=== PATIENT | male | born 1965 | race Caucasian/White ===

== ENCOUNTER 2020-02-16 16:00 | Emergency (ER) | payer BC, OTHER ==
[2020-02-16] MEDS ORDERED: fentaNYL 100 MCG/2 ML SDV IVPUSH ONE (16:47)
[2020-02-16] MEDS ORDERED: Ketamine 500 MG/5 ML MDV IV ONE (16:47)
--- NOTE | 2020-02-16 16:51 | EDM.PDOC ---
ED HPI GENERAL MEDICAL PROBLEM - General Chief Complaint: Back Pain or Injury Stated Complaint: [facility] Time Seen by Provider: 02/16/20 16:42 Source of Information: Reports: Patient, Family, RN Notes Reviewed History Limitations: Reports: No Limitations - History of Present Illness INITIAL COMMENTS - FREE TEXT/NARRATIVE: 54-year-old gentleman presents emergency department today with complaint of pain to his right rib mid axillary line area, he had slipped on the ice landed direct contact on some rocks, is experiencing excruciating pain difficult to take a deep breath did arrive by EMS he is also complaining of left knee pain - Related Data Allergies Allergy/AdvReac Type Severity Reaction Status Date / Time pantoprazole [From Protonix] Allergy Rash Verified 02/16/20 16:07 sulfur dioxide Allergy Cannot Verified 02/16/20 16:07 Remember Home Meds: Home Meds Adalimumab [Humira Pen] 1 injection IM ASDIRECTED 02/16/20 [History] Folic Acid 1 mg PO DAILY 02/16/20 [History] Omeprazole 20 mg PO ASDIRECTED 02/16/20 [History] metHOTREXate sodium [Methotrexate] 2.5 mg PO ASDIRECTED 02/16/20 [History] traMADol [Ultram] 50 mg PO DAILY 02/16/20 [History] Past Medical History Musculoskeletal History: Reports: Arthritis, Osteoarthritis - Infectious Disease History Infectious Disease History: Reports: Chicken Pox - Past Surgical History Musculoskeletal Surgical History: Reports: Knee Replacement Social & Family History - Tobacco Use Tobacco Use Status *Q: Never Tobacco User - Caffeine Use Caffeine Use: Reports: Coffee, Soda - Recreational Drug Use Recreational Drug Use: No ED ROS GENERAL - Review of Systems Review Of Systems: See Below Constitutional: Reports: No Symptoms HEENT: Reports: No Symptoms Respiratory: Reports: Shortness of Breath Cardiovascular: Reports: Chest Pain GI/Abdominal: Reports: No Symptoms : Reports: No Symptoms Musculoskeletal: Reports: Joint Pain (Knee pain) ED EXAM, UPPER BACK/NECK PAIN - Physical Exam Exam: See Below Text/Narrative:: Primary survey airway is open patent and clear lungs are clear to auscultation bilaterally cardiovascular intact regular rate and rhythm S1-S2 GCS 15 Examination of the left knee he is tender along the medial aspect difficult for him to flex and extend the knee, examination of the thorax and on appreciate any erythema there is no edema there is no bruising appreciated on the right side he is extremely tender to the slightest palpation lower thorax T5-12 region Exam Limited By: No Limitations General Appearance: Alert, Mild Distress Course - Vital Signs Last Recorded V/S: Last Vital Signs Temp 96.8 F L 02/16/20 16:11 Pulse 89 02/16/20 16:11 Resp 16 02/16/20 16:11 BP 131/100 H 02/16/20 16:11 Pulse Ox 98 02/16/20 16:11 - Orders/Labs/Meds Orders: Active Orders 24 hr Category Date Time Status Knee 3V Lt [CR] Stat Exams 02/16/20 16:47 Taken Sodium Chloride 0.9% [Normal Saline] 75 ml Med 02/16/20 17:00 Active IV ASDIRECTED Medication Orders Sodium Chloride (Normal Saline) 75 mls @ 3.5 mls/sec IV ASDIRECTED ALICE Last Admin: 02/16/20 17:25 Dose: 2.8 mls/sec Documented by: BERNADETTE Labs: Laboratory Tests 02/16/20 Range/Units 16:47 Sodium 124 L (140-148) mmol/L Potassium 3.7 (3.6-5.2) mmol/L Chloride 90 L (100-108) mmol/L Carbon Dioxide 25 (21-32) mmol/L Anion Gap 12.7 (5.0-14.0) mmol/L BUN 10 (7-18) mg/dL Creatinine 0.6 L (0.7-1.3) mg/dL Est Cr Clr Drug Dosing 153.39 mL/min Estimated GFR (MDRD) > 60 (>60) Glucose 108 H (74-106) mg/dL Calcium 8.9 (8.5-10.1) mg/dL Meds: Medications Generic Name Dose Route Start Last Admin Trade Name Freq PRN Reason Stop Dose Admin Sodium Chloride 75 mls @ 3.5 mls/sec 02/16/20 17:00 02/16/20 17:25 Normal Saline IV 2.8 mls/sec ASDIRECTED ALICE Administration Discontinued Medications Generic Name Dose Route Start Last Admin Trade Name Freq PRN Reason Stop Dose Admin Fentanyl 50 mcg 02/16/20 16:47 02/16/20 17:00 Sublimaze IVPUSH 02/16/20 16:48 50 mcg ONETIME ONE Administration Iopamidol 100 ml 02/16/20 16:55 02/16/20 17:24 Isovue-300 (61%) IV 02/16/20 16:56 100 ml ONETIME ONE Administration Ketamine HCl 20 mg 02/16/20 16:47 02/16/20 17:01 Ketalar IV 02/16/20 16:48 20 mg ONETIME ONE Administration Sodium Chloride 10 ml 02/16/20 16:55 02/16/20 17:25 Saline Flush FLUSH 02/16/20 16:56 10 ml ONETIME ONE Administration Departure - Departure Time of Disposition: 18:38 Disposition: Home, Self-Care 01 Condition: Fair Clinical Impression: Multiple rib fractures Qualifiers: Encounter type: initial encounter Fracture type: closed Laterality: right Qualified Code(s): S22.41XA - Multiple fractures of ribs, right side, initial encounter for closed fracture Lumbar transverse process fracture Qualifiers: Encounter type: initial encounter Fracture type: closed Qualified Code(s): S32.009A - Unspecified fracture of unspecified lumbar vertebra, initial encounter for closed fracture - Discharge Information Instructions: Transverse Process Fracture, Rib Fracture Referrals: PCP,None [Primary Care Provider] - Forms: ED Department Discharge Additional Instructions: Use ibuprofen for baseline pain control, use Percocet for breakthrough pain, please follow-up with your primary care upon return home Sepsis Event Note (ED) - Evaluation Sepsis Screening Result: No Definite Risk - Focused Exam Vital Signs: Vital Signs Temp Pulse Resp BP Pulse Ox 02/16/20 16:11 96.8 F L 89 16 131/100 H 98 02/16/20 16:10 96.8 F L 89 16 131/100 H 98 - My Orders Last 24 Hours: My Active Orders 02/16/20 16:47 Knee 3V Lt [CR] Stat 02/16/20 17:00 Sodium Chloride 0.9% [Normal Saline] 75 ml IV ASDIRECTED - Assessment/Plan Last 24 Hours: My Active Orders 02/16/20 16:47 Knee 3V Lt [CR] Stat 02/16/20 17:00 Sodium Chloride 0.9% [Normal Saline] 75 ml IV ASDIRECTED Plan: Assessment Acuity = acute Site and laterality = rib fractures 10 and 11 nondisplaced on the right side, transverse process nondisplaced L1 Etiology = secondary to a fall yesterday Manifestations = pain Location of injury = Home Lab values = CT scan describes fracture as above sodium low at 124 consistent hyponatremia Plan He had good relief with combination of fentanyl and ketamine, prescription written for Percocet 5/325 1 tab p.o. 3 times daily as needed total #20 he will follow-up with his primary care upon return home This note was dictated using [employer] voice recognition software please call with any questions on syntax or grammar.
[2020-02-16] MEDS ORDERED: Iopamidol 612 MG/ML 500 ML Multipack Bottle IV ONE (16:55)
[2020-02-16] MEDS ORDERED: Sodium Chloride 0.9% 75 ML IV SCH (17:00)
[2020-02-16] MEDS: Sodium Chloride 0.9% 10 ML Syringe FLUSH ONE ×2 (17:02→17:25)
--- NOTE | 2020-02-16 18:23 | CRLCT ---
INDICATION: fall, right rib pain CT CHEST WITH CONTRAST TECHNIQUE: Multidetector CT imaging was performed through the chest following intravenous contrast administration using 100 mL Isovue-300. Coronal and sagittal reconstructions were generated. COMPARISON: None. FINDINGS: Lungs and airways: Multiple small foci of patchy opacity in the upper lobes bilaterally, and a few tiny ones in the right middle lobe and right lower lobe, likely representing an infectious/inflammatory process. Central airways are patent. Pleura and pleural spaces: No pleural effusions or pneumothorax. Heart and mediastinum: Normal heart size. No significant pericardial effusion. 3.5 centimeter fluid attenuation focus at the left cardiophrenic angle consistent with a pericardial cyst. No pathologically enlarged mediastinal lymph nodes. Vascular structures: Normal caliber thoracic aorta. Chest wall and axillae: No mass or axillary lymphadenopathy. Osseous structures: Acute nondisplaced fractures of the right 10th and 11th ribs, and of the right transverse process of L1. Minor spinal degenerative changes. Upper abdomen: Diffuse fatty infiltration of the liver. IMPRESSION: 1. Acute nondisplaced fractures of the right 10th and 11th ribs, and of the right transverse process of L1. 2. Multiple small foci of patchy opacity in the upper lobes, and a few in the right middle lobe and right lower lobe, likely representing an infectious or inflammatory process. Mild COVID-19 pneumonia is a consideration. 3. Nonacute additional findings as detailed above. AROLDO KAHN MD [employer] Dictated by Richard Kahn MD @ 02/16/2020 6:21:50 PM Dictated by: Richard Kahn MD @ 02/16/2020 18:22:23 (Electronically Signed)
--- NOTE | 2020-02-17 12:18 | CR ---
Knee 3V Lt CLINICAL HISTORY: Injury FINDINGS: No acute fracture or dislocation is noted. There are no osseous lesions. There is some prominence of the intercondylar eminence. There is some patellar spurring. Impression: Mild osteoarthritic changes No fracture
== END 2020-02-16 19:00 | disposition home or self-care (01) ==
LOC: JP.ED 16:00
DX: S22.41XA Multiple fractures of ribs, right side, initial encounter for closed fracture (principal); S32.019A Unspecified fracture of first lumbar vertebra, initial encounter for closed fracture; M25.562 Pain in left knee; Z88.8 Allergy status to other drugs, medicaments and biological substances; W00.0XXA Fall on same level due to ice and snow, initial encounter
CPT/HCPCS: 36415; 71260; 73562; 80048; 96374; 96375; 99284; J3010; Q9967